=== PATIENT | female | born 1950 | race Caucasian/White ===

== ENCOUNTER → 2018-07-03 | Outpatient (CLI) | payer OTHER ==
[~2018-07-03] MED LIST: ATORVASTATIN CA20 MG PO; Crutch1 EACH MISC; GLAUCOMA MED; HYDACE5 PO; METO50ER; NEBI10 PO; Percocet 10-321 EACH PO; TIMO.25OPS BOTHEYES; VALSARTAN-HCTZ1 EAC2 PO; [UNRECOGNIZED DRUG - REMARK]; [UNRECOGNIZED DRUG - REMARK]
== END | disposition home or self-care (01) ==
LOC: LAB SHORT 08:31 → PLD 08:31
DX: D22.4 Melanocytic nevi of scalp and neck (principal); D28.0 Benign neoplasm of vulva
CPT/HCPCS: 88304; 88305

== ENCOUNTER → 2019-06-07 | Outpatient (CLI) | payer OTHER | END | disposition home or self-care (01) | LOC: LAB SHORT 16:30 → LAB 16:30 | DX: J02.9 Acute pharyngitis, unspecified (principal) | CPT/HCPCS: 87081 ==

== ENCOUNTER → 2025-10-28 | Outpatient (CLI) | payer OTHER ==
[2025-10-29 12:59] LABS: Bacterial Vaginosis PCR Negative (NEGATIVE); Candida Group, PCR NOT DETECTED (NOT DETECT); Candida glabrata-krusei, PCR NOT DETECTED (NOT DETECT)
== END | disposition home or self-care (01) ==
LOC: LAB SHORT 17:35 → LAB 17:35
PROVIDERS: Internal Medicine
DX: N76.0 Acute vaginitis (principal)
CPT/HCPCS: 81515